=== PATIENT | male | born 1955 | race Caucasian/White ===

== ENCOUNTER 2017-09-29 19:30 | Emergency (ER) | payer MEDICARE, OTHER ==
[~2017-09-29] VITALS: Ht 162.6 cm; Wt 90.7 kg
[~2017-09-29 19:30] MED LIST: ADVAIR 100-501 EACH IH; ADVAIR 250-501 EACH INH; CIPRO500 MG PO; LISINOPRIL-HCT1 EACH PO; OMEPRAZOLE20 MG PO; PREDNISONE20 MG PO; PRILOSEC20 MG PO; RISPERDAL1 MG PO; ROBAFEN-DM SYR118 ML PO; TRAMADOL HCL50 MG PO; VENTOLIN HFA18 GM IH; ZITHROMAX250 MG PO
--- NOTE | 2017-09-30 14:34 | EKG ---
[facility] [address] [facility] [place] [address] Signed Sinus rhythm with premature supraventricular complexes Otherwise normal ECG No previous ECGs available Confirmed by FUAD SELF MD ([id number]) on 09/30/2017 2:33:54 PM Electronically Signed By: FUAD SELF MD 09/30/17 1434 PATIENT NAME: JORGE EPPERSON Electrocardiogram DATE OF : 59 PHYSICIAN: FUAD SELF MD REPORT #: [id number] REPORT IS CONFIDENTIAL AND NOT TO BE RELEASED WITHOUT AUTHORIZATION
== END 2017-09-30 00:21 | disposition home or self-care (01) ==
LOC: ED 19:30
DX: J44.1 Chronic obstructive pulmonary disease with (acute) exacerbation (principal); I10 Essential (primary) hypertension; F17.200 Nicotine dependence, unspecified, uncomplicated; Z88.5 Allergy status to narcotic agent; Z79.899 Other long term (current) drug therapy
CPT/HCPCS: 71045; 76705; 80053; 83735; 83880; 84484; 85025; 93005; 93010; 94640; 94645; 96374; 96375; 99284; J2270; J2405; J2930

== ENCOUNTER 2018-01-18 09:26 | Emergency (ER) | payer MEDICARE, MEDICAID ==
[~2018-01-18] VITALS: Ht 162.6 cm; Wt 90.7 kg
--- OUTSIDE RECORDS SUMMARY | ~2018-01-18 | XMS | Clinical Summary ---
Demographics + + + | Address | [address] | | | [place] [address] | + + + | Home Phone | | + + + | Preferred Language | Unknown | + + + | Marital Status | | + + + | Episcopalian Affiliation | Unknown | + + + | Race | Unknown | + + + | Ethnic Group | Unknown | + + + Author + + + | Author | [facility] | | | and [place] | + + + | Organization | [facility] | | | and [place] | + + + | Address | Unknown | + + + | Phone | Unavailable | + + + Support + + +---------+ + | Name | Relationship | Address | Phone | + + +---------+ + | Nayana Fowler | ECON | Unknown | | + + +---------+ + Care Team Providers + +------+ + | Care Livestock Farmworker Name | Role | Phone | + +------+ + | Glynn Roberts MD | PP | | + +------+ + Allergies + + + + + + | Active Allergy | Reactions | Severity | Noted | Comments | | | | | Date | | + + + + + + | Codeine | Nausea And Vomiting | Medium | 07/06/19 | | | | | | 17 | | + + + + + + Current Medications + + +--------+---------+------+------+-------+ | Prescription | Sig. | Disp. | Refills | Star | End | Statu | | | | | | t | Date | s | | | | | | Date | | | + + +--------+---------+------+------+-------+ | ADVAIR HFA 45-21 | Inhale 2 puffs into | | | 03/0 | | Activ | | MCG/ACT inhaler | the lungs as needed. | | | 7/20 | | e | | | | | | 17 | | | + + +--------+---------+------+------+-------+ | | Take 1 tablet by | | | | | Activ | | lisinopril-hydrochlo | mouth Daily. | | | | | e | | rothiazide | | | | | | | | (PRINZIDE,ZESTORETIC | | | | | | | | ) 20-12.5 MG per | | | | | | | | tablet | | | | | | | + + +--------+---------+------+------+-------+ | sodium | Take 177 mLs by | 2 | 0 | 03/1 | | Activ | | sulfate-potassium | mouth See Admin | Bottle | | 08/12 | | e | | sulfate-magnesium | Instructions. Take | | | 17 | | | | sulfate (SUPREP | one kit, first dose | | | | | | | BOWEL PREP) oral | at 4pm July 12, | | | | | | | solution | second dose at 6AM | | | | | | | | July 13. | | | | | | + + +--------+---------+------+------+-------+ | ondansetron | Take 1 tablet by | 2 | 0 | 03/1 | | Activ | | (ZOFRAN) 4 mg tablet | mouth See Admin | tablet | | 08/12 | | e | | | Instructions. If | | | 17 | | | | | nausea with prep. | | | | | | | | Stop prep, take 1 | | | | | | | | tab by mouth,wait 30 | | | | | | | | min, restart prep | | | | | | | | may repeat | | | | | | + + +--------+---------+------+------+-------+ Active Problems + + + | Problem | Noted Date | + + + | Special screening for malignant neoplasms, colon | 07/09/2016 | + + + | Chronic obstructive pulmonary disease, unspecified COPD type | 07/06/2016 | | (HCC) | | + + + | Hearing voices | 07/06/2016 | + + + | Family history of colon cancer | 07/06/2016 | + + + Family History + + +------+ + | Medical History | Relation | Name | Comments | + + +------+ + | Kidney disease | Daughter | | | + + +------+ + | Colon cancer | Father | | | + + +------+ + | Prostate cancer | Father | | | + + +------+ + | Breast cancer | Mother | | | + + +------+ + | Diabetes | Other | | Aunt | + + +------+ + + +------+--------+ + | Relation | Name | Status | Comments | + +------+--------+ + | Daughter | | | | + +------+--------+ + | Father | | Alive | | + +------+--------+ + | Mother | | Alive | | + +------+--------+ + | Other | | | | + +------+--------+ + Social History + + + +--------+------+ | Tobacco Use | Types | Packs/Day | Years | Date | | | | | Used | | + + + +--------+------+ | Current Some Day | Cigarettes | 0.1 | | | | Smoker | | | | | + + + +--------+------+ + +---+---+---+ | Smokeless Tobacco: | | | | | Never Used | | | | + +---+---+---+ + + | Tobacco Cessation: Ready to Quit: No; Counseling Given: Yes | | Comments: smokes 1 pack per week | + + + + +---------+ + | Alcohol Use | Drinks/We | oz/Week | Comments | | | ek | | | + + +---------+ + | Yes | 0 | 3.0 | | | | Standard | | | | | drinks or | | | | | | | | | | equivalen | | | | | t 5 Cans | | | | | of beer | | | + + +---------+ + + + + | Sex Assigned at | Date Recorded | | | | + + + | Not on file | | + + + Last Filed Vital Signs + + + + | Vital Sign | Reading | Time Taken | + + + + | Blood Pressure | 162/104 | 07/05/20161113 PDT | + + + + | Pulse | 89 | 07/05/20161113 PDT | + + + + | Temperature | 36.8 C (98.3 F) | 07/05/20161113 PDT | + + + + | Respiratory Rate | 16 | 07/05/20161113 PDT | + + + + | Oxygen Saturation | 98% | 07/05/20161113 PDT | + + + + | Inhaled Oxygen | - | - | | Concentration | | | + + + + | Weight | 89.4 kg (197 lb) | 07/05/20161113 PDT | + + + + | Height | 163.8 cm (5' 4.5") | 07/05/20161113 PDT | + + + + | Body Mass Index | 33.29 | 07/05/20161113 PDT | + + + + Plan of Treatment + + + + + | Health Maintenance | Due Date | Last Done | Comments | + + + + + | Hepatitis C | | | | | Screening | 8 | | | + + + + + | Vaccine: | | | | | Pneumococcal 19-64 | 7 | | | | (PPSV23 only) Medium | | | | | Risk (1 of 1 - | | | | | PPSV23) | | | | + + + + + | Colorectal Cancer | | | | | Screening | 8 | | | | (Colonoscopy) | | | | + + + + + | Vaccine: Zoster (1 | | | | | of 2) | 8 | | | + + + + + | Vaccine: | | 05/26/2012 | | | Dtap/Tdap/Td (1 - | 3 | | | | Tdap) | | | | + + + + + | Vaccine: Influenza | | | | | (#1) | 8 | | | + + + + + Results Not on filefrom Last 3 Months Insurance + +--------+ +--------+ +---------+ | Payer | Benefi | Subscriber | Type | Phone | Address | | | t Plan | ID | | | | | | / | | | | | | | Group | | | | | + +--------+ +--------+ +---------+ | MEDICARE | MEDICA | [id number] | Medica | [phone] | | | RE | | re | [phone] | | | | PART A | | | | | | | AND B | | | | | + +--------+ +--------+ +---------+ + +--------+ +--------+ + + | Guarantor Name | Accoun | Relation to | Date | Phone | Billing Address | | | t Type | Patient | of | | | | | | | | | | + +--------+ +--------+ + + | DEMETRIUS BOWMAN | Person | Self [birth year] | Home: | [address] | | | al/Fam | | 1956 | [phone] | [place] [address] | | | candice | | | [phone] | | + +--------+ +--------+ + +
--- OUTSIDE RECORDS SUMMARY | ~2018-01-18 | XMS | Clinical Summary ---
Demographics + + + | Address | [address] | | | [place] [address] | + + + | Home Phone | | + + + | Preferred Language | Unknown | + + + | Marital Status | | + + + | Rastafari Affiliation | Unknown | + + + | Race | Unknown | + + + | Ethnic Group | Unknown | + + + Author + + + | Author | [facility] | | | and [place] | + + + | Organization | [facility] | | | and [place] [...] Team Providers + +------+ + | Care Systems Mgr Name | Role | Phone | + [...] +--------+ +---------+ | MEDICARE | MEDICA | [id number] | Medica | [phone] | | [...] al/Fam | | 1956 | [phone] | [place] [address] | | | candice | | | [phone] | | + +--------+ +--------+ + +
[2018-01-18] MEDS ORDERED: LOSARTAN POTASS50 MG PO (09:42)
[2018-01-18] MEDS ORDERED: METOPROLOL SUCC50 MG PO (09:42)
[2018-01-18] MEDS ORDERED: FAMOTIDINE20 MG PO (09:43)
[2018-01-18] MEDS ORDERED: PREDNISONE20 MG PO (13:45)
[2018-01-18] MEDS ORDERED: OMEPRAZOLE20 MG PO (13:45)
[2018-01-18] MEDS ORDERED: ONDANSETRON ODT8 MG PO (13:45)
== END 2018-01-18 14:10 | disposition home or self-care (01) ==
LOC: ED 09:26
DX: J44.1 Chronic obstructive pulmonary disease with (acute) exacerbation (principal); K29.70 Gastritis, unspecified, without bleeding; K70.10 Alcoholic hepatitis without ascites; K85.90 Acute pancreatitis without necrosis or infection, unspecified; I10 Essential (primary) hypertension; F17.200 Nicotine dependence, unspecified, uncomplicated; Z88.5 Allergy status to narcotic agent; Z79.899 Other long term (current) drug therapy
CPT/HCPCS: 71046; 80053; 83690; 85025; 85610; 85730; 94640; 96361; 96374; 96375; 99283; 99406; J2405; J2930; J7040

== ENCOUNTER 2018-06-12 17:45 | Emergency (ER) | payer MEDICARE, MEDICAID ==
[~2018-06-12] VITALS: Ht 162.6 cm; Wt 90.7 kg
[~2018-06-12 17:45] MED LIST changes: +FAMOTIDINE20 MG PO; +LOSARTAN POTASS50 MG PO; +METOPROLOL SUCC50 MG PO; +ONDANSETRON ODT8 MG PO
[2018-06-12] MEDS ORDERED: PREDNISONE20 MG PO (20:09)
[2018-06-12] MEDS ORDERED: DOXYCYCLINE HY100 MG PO (20:23)
--- NOTE | 2018-06-13 20:16 | EKG ---
[facility] [address] [facility] [place] [address] Signed Normal sinus rhythm Normal ECG When compared with ECG of 29-SEP-2017 19:36, premature supraventricular complexes are no longer present QT has shortened Confirmed by LORRAINE EPSTEIN MD ([id number]) on 06/13/2018 8:15:51 PM Electronically Signed By: LORRAINE EPSTEIN MD 06/13/182015 PATIENT NAME: JORGE EPPERSON Electrocardiogram DATE OF : 59 PHYSICIAN: LORRAINE EPSTEIN MD REPORT #: [id number] REPORT IS CONFIDENTIAL AND NOT TO BE RELEASED WITHOUT AUTHORIZATION
== END 2018-06-12 20:31 | disposition home or self-care (01) ==
LOC: ED 17:45
DX: J44.1 Chronic obstructive pulmonary disease with (acute) exacerbation (principal); I10 Essential (primary) hypertension; F17.200 Nicotine dependence, unspecified, uncomplicated; Z88.5 Allergy status to narcotic agent; Z79.899 Other long term (current) drug therapy; Z79.52 Long term (current) use of systemic steroids
CPT/HCPCS: 71045; 80053; 83735; 83880; 84484; 85025; 93005; 93010; 94640; 94660; 96374; 99285-25; J2930

== ENCOUNTER 2019-08-16 00:40 | Emergency (ER) | payer MEDICARE, MEDICAID ==
[~2019-08-16] VITALS: Ht 162.6 cm; Wt 90.7 kg
--- OUTSIDE RECORDS SUMMARY | ~2019-08-16 | XMS | Encounter Summary ---
Demographics + + + | Address | [address] | | | [place] [address] | + + + | Home Phone | | + + + | Preferred Language | Unknown | + + + | Marital Status | | + + + | Taoist Affiliation | Unknown | + + + | Race | Unknown | + + + | Ethnic Group | Unknown | + + + Author + + + | Author | [facility] | | | and [place] | + + + | Organization | [facility] | | | and [place] | + + + | Address | Unknown | + + + | Phone | Unavailable | + + + Support + + +---------+ + | Name | Relationship | Address | Phone | + + +---------+ + | Nayana Fowler | ECON | Unknown | | + + +---------+ + Care Team Providers + +------+ + | Care Company Doctor Name | Role | Phone | + +------+ + PCP | Unavailable | + +------+ + Encounter Details +--------+ + + + + | Date | Type | Department | Care Team | Description | +--------+ + + + + | 05/12/ | Hospital | [facility] | Gabriele Munoz | | | 2000 - | Encounter | [facility] | MD Naty Yoon | | | | | GENERIC OP CONV DEPT | [address] [place], [place] | | | 05/24/ | | [address] | [address] | | | 2000 | | [place], [place] | | | | | | [address] | | | | | | [phone] | | | +--------+ + + + + Social History + +-------+ +--------+------+ | Tobacco Use | Types | Packs/Day | Years | Date | | | | | Used | | + +-------+ +--------+------+ | Never Assessed | | | | | + +-------+ +--------+------+ + + + | Sex Assigned at | Date Recorded | | | | + + + | Not on file | | + + + + + + + | Job Start Date | Occupation | Industry | + + + + | Not on file | Not on file | Not on file | + + + + + + + + | Travel History | Travel Start | Travel End | + + + + + + | No recent travel history available. | + + documented as of this encounter Plan of Treatment Not on filedocumented as of this encounter Visit Diagnoses Not on filedocumented in this encounter"
--- OUTSIDE RECORDS SUMMARY | ~2019-08-16 | XMS | Encounter Summary ---
Demographics + + + | Address | [address] | | | [place] [address] | + + + | Home Phone | | + + + | Preferred Language | Unknown | + + + | Marital Status | | + + + | Alevism Affiliation | Unknown | + + + | Race | Unknown | + + + | Ethnic Group | Unknown | + + + Author + + + | Author | [facility] | | | and [place] | + + + | Organization | [facility] | | | and [place] | [...] Team Providers + +------+ + | Care Advanced Registered Nurse Name | Role | Phone | + +------+ + | Glnyn Roberts MD | PCP | | + +------+ + Encounter Details +--------+ + + + + | Date | Type | Department | Care Team | Description | +--------+ + + + + | 07/06/ | Episode | [facility] [place] | [address], | | | 2016 | Changes | GASTROENTEROLOGY | RN | | | | | [address] [place] | | | | | | [address] [place] | | | | | | [address] | | | | | | [phone] | | | +--------+ + + + + Social History + +-------+ +--------+------+ | Tobacco Use | Types | Packs/Day | Years | Date | | | | | Used | | + +-------+ +--------+------+ | Light Tobacco Smoker | | | | | + +-------+ +--------+------+ + +---+---+---+ | Smokeless Tobacco: | | | | | Never Used | | | | + +---+---+---+ + + +---------+ + | Alcohol Use | Drinks/Week | oz/Week | Comments | + + +---------+ + | Yes | 0 Standard drinks | 0.0 | | | | or equivalent | | | + + +---------+ + + + + | Sex Assigned at [...]
--- OUTSIDE RECORDS SUMMARY | ~2019-08-16 | XMS | Encounter Summary ---
Demographics + + + | Address | [address] | | | [place] [address] | + + + | Home Phone | | + + + | Preferred Language | Unknown | + + + | Marital Status | | + + + | Church Affiliation | Unknown | + + + | Race | Unknown | + + + | Ethnic Group | Unknown | + + + Author + + + | Author | [facility] | | | and [place] | + + + | Organization | [facility] | | | and [place] [...] Team Providers + +------+ + | Care Biological Technical Officer Name | Role | Phone | + +------+ + | Glynn Roberts MD | PCP | | + +------+ + Encounter Details +--------+ + + + + | Date | Type | Department | Care Team | Description | +--------+ + + + + | 07/13/ | Anesthesia | [facility] | [place], | | | 2017 | Event | [facility] | [address] | | | | | [address] | [place] | | | | | [place] | [address] | | | | | [address] | | | | | | [phone] | | | +--------+ + + + + Anesthesia Record + + + + + | Procedure Name | Responsible | Anesthesia Start | Anesthesia Stop Time | | | Anesthesiologist | Time | | + + + + + | COLONOSCOPY (N/A | | | | | Rectum) | | | | + + + + + + + | No events on file. | + + +------+ | Meds | +------+ + + + No medications | on file. | + + + + + | No agents on file. | + + + + | No blood administrations on file. | + + + + | No LDAs on file. | + + documented in this encounter Social History + + + +--------+------+ | [...] | | + +---+---+---+ + + | Comments: smokes 1 pack per week | + + + + +---------+ + | Alcohol Use | Drinks/Week | oz/Week | Comments | + + +---------+ + | Yes | 0 Standard drinks | 5.0 | | | | or equivalent 5 | | | | | Cans of beer | | | + + [...]
--- OUTSIDE RECORDS SUMMARY | ~2019-08-16 | XMS | Encounter Summary ---
Demographics + + + | Address | [address] | | | [place] [address] | + + + | Home Phone | | + + + | Preferred Language | Unknown | + + + | Marital Status | | + + + | Orthodox Affiliation | Unknown | + + + | Race | Unknown | + + + | Ethnic Group | Unknown | + + + Author + + + | Author | [facility] | | | and [place] | + + + | Organization | [facility] | | | and [place] [...] Team Providers + +------+ + | Care Spare Hand Name | Role | Phone | + [...] [place] | | | | | | [address] | | | | | | [phone] | | | +--------+ + + + [...]
--- OUTSIDE RECORDS SUMMARY | ~2019-08-16 | XMS | Encounter Summary ---
Demographics + + + | Address | [address] | | | [place] [address] | + + + | Home Phone | | + + + | Preferred Language | Unknown | + + + | Marital Status | | + + + | Anabaptist Affiliation | Unknown | + + + | Race | Unknown | + + + | Ethnic Group | Unknown | + + + Author + + + | Author | [facility] | | | and [place] | + + + | Organization | [facility] | | | and [place] [...] Team Providers + +------+ + | Care Wire Saw Operator Name | Role | Phone | + +------+ + PCP | Unavailable | + +------+ + Encounter Details +--------+ + + + + | Date | Type | Department | Care Team | Description | +--------+ + + + + | 06/28/ | Hospital | [facility] | Gabriele Munoz | | | 2000 - | Encounter | [facility] | MD Naty Yoon | | | | | GENERIC OP CONV DEPT | [address] [place], [place] | | | 06/29/ | | [address] | [address] | | | 2000 | | [place], [place] | | | | | | [address] | | | | | | [phone] | | | +--------+ + + + [...]
--- OUTSIDE RECORDS SUMMARY | ~2019-08-16 | XMS | Encounter Summary ---
Demographics + + + | Address | [address] | | | [place] [address] | + + + | Home Phone | | + + + | Preferred Language | Unknown | + + + | Marital Status | | + + + | Episcopal Affiliation | Unknown | + + + | Race | Unknown | + + + | Ethnic Group | Unknown | + + + Author + + + | Author | [facility] | | | and [place] | + + + | Organization | [facility] | | | and [place] | [...] Team Providers + +------+ + | Care Head Housekeeper Name | Role | Phone | + +------+ + | Glynn Roberts MD | PCP | | + +------+ + Encounter Details +--------+ + + + + | Date | Type | Department | Care Team | Description | +--------+ + + + + | 07/05/ | Documentati | [facility] [place] | [facility], | | | 2017 | on | GASTROENTEROLOGY | [address] | | | | | [address] [place] | [place], [place] [address] | | | | | [address] [place] | [place] | | | | | [address] | [address] | | | | | [phone] | | | +--------+ + + + [...]
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
--- OUTSIDE RECORDS SUMMARY | ~2019-08-16 | XMS | Encounter Summary ---
Demographics + + + | Address | [address] | | | [place] [address] | + + + | Home Phone | | + + + | Preferred Language | Unknown | + + + | Marital Status | | + + + | Hinduism Affiliation | Unknown | + + + | Race | Unknown | + + + | Ethnic Group | Unknown | + + + Author + + + | Author | [facility] | | | and [place] | + + + | Organization | [facility] | | | and [place] [...] Team Providers + +------+ + | Care Coater Operator Insulation Board Name | Role | Phone | + +------+ + | Glynn Roberts MD | PCP | | + +------+ + Reason for Visit + + + | Reason | Comments | + + + | Pre-Procedure | questions | + + + Encounter Details +--------+ + + + + | Date | Type | Department | Care Team | Description | +--------+ + + + + | 07/12/ | Telephone | [facility] [place] | [facility], | Pre-Procedure | | 2017 | | GASTROENTEROLOGY | Karyn[address]WAIN [address] | (questions) | | | | [address] [place] | [place], [place] [address] | | | | | [address] [place], [place] | [place], [place] | | | | | [address] | [address] | | | | | [phone] | | | +--------+ + + + + Social History + + + +--------+------+ [...]
--- OUTSIDE RECORDS SUMMARY | ~2019-08-16 | XMS | Encounter Summary ---
Demographics + + + | Address | [address] | | | [place] [address] | + + + | Home Phone | | + + + | Preferred Language | Unknown | + + + | Marital Status | | + + + | Scientologist Affiliation | Unknown | + + + | Race | Unknown | + + + | Ethnic Group | Unknown | + + + Author + + + | Author | [facility] | | | and [place] | + + + | Organization | [facility] | | | and [...] Team Providers + +------+ + | Care All Around Patternmaker Name | Role | Phone | + [...] | Telephone | [facility] [place] | [facility], | Pre-Procedure | | 2017 | | GASTROENTEROLOGY | [address]IN [address] | (questions) | | | | [address] [place] | [place], [place] [address] | | | | | [address] [place], [place] | [place], [place] | | | | | [address] | [address] | | | | | [phone] | | | +--------+ + + + [...]
--- OUTSIDE RECORDS SUMMARY | ~2019-08-16 | XMS | Encounter Summary ---
Demographics + + + | Address | [address] | | | [place] [address] | + + + | Home Phone | | + + + | Preferred Language | Unknown | + + + | Marital Status | | + + + | Uatsdin Affiliation | Unknown | + + + | Race | Unknown | + + + | Ethnic Group | Unknown | + + + Author + + + | Author | [facility] | | | and [place] | + + + | Organization | [facility] | | | and [...] Team Providers + +------+ + | Care Job Analysis Manager Name | Role | Phone | + +------+ + | Glynn Roberts MD | PCP | | + +------+ + Reason for Visit + + + | Reason | Comments | + + + | Procedure | | + + + Encounter Details +--------+ + + + + | Date | Type | Department | Care Team | Description | +--------+ + + + + | 07/13/ | Telephone | [facility] [place] | [facility], | Procedure | | 2017 | | GASTROENTEROLOGY | [address] | | | | | [address] [place] | [place], [place] [address] | | | | | [address] [place], [place] | [place], [place] | | | | | [address] | [address] | | | | | [phone] | | | +--------+ + + + [...]
--- OUTSIDE RECORDS SUMMARY | ~2019-08-16 | XMS | Encounter Summary ---
Demographics + + + | Address | [address] | | | [place] [address] | + + + | Home Phone | | + + + | Preferred Language | Unknown | + + + | Marital Status | | + + + | Jain Affiliation | Unknown | + + + | Race | Unknown | + + + | Ethnic Group | Unknown | + + + Author + + + | Author | [facility] | | | and [place] | + + + | Organization | [facility] | | | and [place] | [...] Team Providers + +------+ + | Care Accredited Pharmacy Technician Name | Role | Phone | + +------+ + | Glynn Roberts MD | PCP | | + +------+ + Encounter Details +--------+ + + + + | Date | Type | Department | Care Team | Description | +--------+ + + + + | 07/05/ | Abstract | [facility] | [place], | | | 2017 | | GASTROENTEROLOGY | [address] | | | | | [address] [place] | [place], [place] [address] | | | | | [address] | [place] | | | | | [address] | [address] | | | | | [phone] | | | +--------+ + + + [...] | + +--------+ + + + | EXTERNAL LAB: BUN | Routin | 08/18/2015 | | Results for this | | | e | | | procedure are in the | | | | | | results section. | + +--------+ + + + | EXTERNAL LAB: | Routin | 08/18/2015 | | Results for this | | GLUCOSE | e | | | procedure are in the | | | | | | results section. | + +--------+ + + + | EXTERNAL LAB: ALT | Routin | 08/18/2015 | | Results for this | | | e | | | procedure are in the | | | | | | results section. | + +--------+ + + + | EXTERNAL LAB: AST | Routin | 08/18/2015 | | Results for this | | | e | | | procedure are in the | | | | | | results section. | + +--------+ + + + | EXTERNAL LAB: | Routin | 08/18/2015 | | Results for this | | BILIRUBIN, TOTAL | e | | | procedure are in the | | | | | | results section. | + +--------+ + + + | EXTERNAL LAB: | Routin | 08/18/2015 | | Results for this | | ALBUMIN | e | | | procedure are in the | | | | | | results section. | + +--------+ + + + | EXTERNAL LAB: | Routin | 08/18/2015 | | Results for this | | PROTEIN, TOTAL | e | | | procedure are in the | | | | | | results section. | + +--------+ + + + | EXTERNAL LAB: | Routin | 08/18/2015 | | Results for this | | MAGNESIUM | e | | | procedure are in the | | | | | | results section. | + +--------+ + + + | EXTERNAL LAB: | Routin | 08/18/2015 | | Results for this | | CALCIUM | e | | | procedure are in the | | | | | | results section. | + +--------+ + + + | EXTERNAL LAB: CARBON | Routin | 08/18/2015 | | Results for this | | DIOXIDE | e | | | procedure are in the | | | | | | results section. | + +--------+ + + + | EXTERNAL LAB: | Routin | 08/18/2015 | | Results for this | | CHLORIDE | e | | | procedure are in the | | | | | | results section. | + +--------+ + + + | EXTERNAL LAB: | Routin | 08/18/2015 | | Results for this | | POTASSIUM | e | | | procedure are in the | | | | | | results section. | + +--------+ + + + | EXTERNAL LAB: SODIUM | Routin | 08/18/2015 | | Results for this | | | e | | | procedure are in the | | | | | | results section. | + +--------+ + + + | EXTERNAL LAB: CBC | Routin | 08/18/2015 | | Results for this | | | e | | | procedure are in the | | | | | | results section. | + +--------+ + + + | EXTERNAL LAB: EGFR | Routin | 08/18/2015 | | Results for this | | | e | | | procedure are in the | | | | | | results section. | + +--------+ + + + | EXTERNAL LAB: | Routin | 08/18/2015 | | Results for this | | CREATININE | e | | | procedure are in the | | | | | | results section. | + +--------+ + + + | COMPREHENSIVE | Routin | 08/18/2015 | | Results for this | | METABOLIC PANEL | e | | | procedure are in the | | | | | | results section. | + +--------+ + + + | EXTERNAL LAB: BUN | Routin | 08/17/2015 | | Results for this | | | e | | | procedure are in the | | | | | | results section. | + +--------+ + + + | EXTERNAL LAB: | Routin | 08/17/2015 | | Results for this | | GLUCOSE | e | | | procedure are in the | | | | | | results section. | + +--------+ + + + | EXTERNAL LAB: | Routin | 08/17/2015 | | Results for this | | TROPONIN T | e | | | procedure are in the | | | | | | results section. | + +--------+ + + + | EXTERNAL LAB: | Routin | 08/17/2015 | | Results for this | | CALCIUM | e | | | procedure are in the | | | | | | results section. | + +--------+ + + + | EXTERNAL LAB: CARBON | Routin | 08/17/2015 | | Results for this | | DIOXIDE | e | | | procedure are in the | | | | | | results section. | + +--------+ + + + | EXTERNAL LAB: | Routin | 08/17/2015 | | Results for this | | CHLORIDE | e | | | procedure are in the | | | | | | results section. | + +--------+ + + + | EXTERNAL LAB: | Routin | 08/17/2015 | | Results for this | | POTASSIUM | e | | | procedure are in the | | | | | | results section. | + +--------+ + + + | EXTERNAL LAB: SODIUM | Routin | 08/17/2015 | | Results for this | | | e | | | procedure are in the | | | | | | results section. | + +--------+ + + + | EXTERNAL LAB: CBC | Routin | 08/17/2015 | | Results for this | | | e | | | procedure are in the | | | | | | results section. | + +--------+ + + + | EXTERNAL LAB: EGFR | Routin | 08/17/2015 | | Results for this | | | e | | | procedure are in the | | | | | | results section. | + +--------+ + + + | EXTERNAL LAB: | Routin | 08/17/2015 | | Results for this | | CREATININE | e | | | procedure are in the | | | | | | results section. | + +--------+ + + + | B TYPE NATRIURETIC | Routin | 08/17/2015 | | Results for this | | PEPTIDE | e | | | procedure are in the | | | | | | results section. | + +--------+ + + + | BASIC METABOLIC | Routin | 08/17/2015 | | Results for this | | PANEL | e | | | procedure are in the | | | | | | results section. | + +--------+ + + + documented in this encounter Results Comprehensive Metabolic Panel (08/18/2015) + +-------+ + + + | Component | Value | Ref Range | Performed | Pathologist | | | | | At | Signature | + +-------+ + + + | Anion Gap | 13 | 7 - 21 mmol/L | | | + +-------+ + + + | Bun/Creatin | 15.6 | 6.0 - 28.6 | | | | ine | | | | | + +-------+ + + + + + | Specimen | + + | Blood specimen | | (specimen) | + + External Lab: BUN (08/18/2015) + +-------+ + + + | Component | Value | Ref Range | Performed | Pathologist | | | | | At | Signature | + +-------+ + + + | BUN, | 14 | 6 - 23 | EXTERNAL | | | External | | | LAB | | + +-------+ + + + + +---------+ + + | Performing | Address | City/State/Zipcode | Phone Number | | Organization | | | | + +---------+ + + | EXTERNAL LAB | | | | + +---------+ + + External Lab: Glucose (08/18/2015) + +---------+ + + + | Component | Value | Ref Range | Performed | Pathologist | | | | | At | Signature | + +---------+ + + + | Glucose, | 151 (A) | 70 - 100 | EXTERNAL | | | External | | | LAB | | + +---------+ + + + + +---------+ + + | Performing | Address | City/State/Zipcode | Phone Number | | Organization | | | | + +---------+ + + | EXTERNAL LAB | | | | + +---------+ + + External Lab: ALT (08/18/2015) + +-------+ + + + | Component | Value | Ref Range | Performed | Pathologist | | | | | At | Signature | + +-------+ + + + | ALT, | 43 | 7 - 52 | EXTERNAL | | | External | | | LAB | | + +-------+ + + + + +---------+ + + | Performing | Address | City/State/Zipcode | Phone Number | | Organization | | | | + +---------+ + + | EXTERNAL LAB | | | | + +---------+ + + External Lab: YESENIA (08/18/2015) + +--------+ + + + | Component | Value | Ref Range | Performed | Pathologist | | | | | At | Signature | + +--------+ + + + | AST, | 45 (A) | 13 - 39 | EXTERNAL | | | External | | | LAB | | + +--------+ + + + + +---------+ + + | Performing | Address | City/State/Zipcode | Phone Number | | Organization | | | | + +---------+ + + | EXTERNAL LAB | | | | + +---------+ + + External Lab: Bilirubin, Total (08/18/2015) + +-------+ + + + | Component | Value | Ref Range | Performed | Pathologist | | | | | At | Signature | + +-------+ + + + | Bilirubin, | 0.5 | 0 - 1.2 | EXTERNAL | | | Total, | | | LAB | | | External | | | | | + +-------+ + + + + +---------+ + + | Performing | Address | City/State/Zipcode | Phone Number | | Organization | | | | + +---------+ + + | EXTERNAL LAB | | | | + +---------+ + + External Lab: Albumin (08/18/2015) + +-------+ + + + | Component | Value | Ref Range | Performed | Pathologist | | | | | At | Signature | + +-------+ + + + | Albumin, | 3.7 | 3.5 - 5 | EXTERNAL | | | External | | | LAB | | + +-------+ + + + + +---------+ + + | Performing | Address | City/State/Zipcode | Phone Number | | Organization | | | | + +---------+ + + | EXTERNAL LAB | | | | + +---------+ + + External Lab: Protein, Total (08/18/2015) + +-------+ + + + | Component | Value | Ref Range | Performed | Pathologist | | | | | At | Signature | + +-------+ + + + | Protein, | 6.5 | 6 - 8 | EXTERNAL | | | Total, | | | LAB | | | External | | | | | + +-------+ + + + + +---------+ + + | Performing | Address | City/State/Zipcode | Phone Number | | Organization | | | | + +---------+ + + | EXTERNAL LAB | | | | + +---------+ + + External Lab: Magnesium (08/18/2015) + +-------+ + + + | Component | Value | Ref Range | Performed | Pathologist | | | | | At | Signature | + +-------+ + + + | Magnesium, | 2.3 | 1.7 - 2.5 | EXTERNAL | | | External | | | LAB | | + +-------+ + + + + +---------+ + + | Performing | Address | City/State/Zipcode | Phone Number | | Organization | | | | + +---------+ + + | EXTERNAL LAB | | | | + +---------+ + + External Lab: Calcium (08/18/2015) + +-------+ + + + | Component | Value | Ref Range | Performed | Pathologist | | | | | At | Signature | + +-------+ + + + | Calcium, | 8.7 | 8.4 - 10.2 | EXTERNAL | | | External | | | LAB | | + +-------+ + + + + +---------+ + + | Performing | Address | City/State/Zipcode | Phone Number | | Organization | | | | + +---------+ + + | EXTERNAL LAB | | | | + +---------+ + + External Lab: Carbon Dioxide (08/18/2015) + +-------+ + + + | Component | Value | Ref Range | Performed | Pathologist | | | | | At | Signature | + +-------+ + + + | Carbon | 24 | 19 - 31 | EXTERNAL | | | Dioxide, | | | LAB | | | External | | | | | + +-------+ + + + + +---------+ + + | Performing | Address | City/State/Zipcode | Phone Number | | Organization | | | | + +---------+ + + | EXTERNAL LAB | | | | + +---------+ + + External Lab: Chloride (08/18/2015) + +-------+ + + + | Component | Value | Ref Range | Performed | Pathologist | | | | | At | Signature | + +-------+ + + + | Chloride, | 104 | 95 - 112 | EXTERNAL | | | External | | | LAB | | + +-------+ + + + + +---------+ + + | Performing | Address | City/State/Zipcode | Phone Number | | Organization | | | | + +---------+ + + | EXTERNAL LAB | | | | + +---------+ + + External Lab: Potassium (08/18/2015) + +-------+ + + + | Component | Value | Ref Range | Performed | Pathologist | | | | | At | Signature | + +-------+ + + + | Potassium, | 4.8 | 3.6 - 5.1 | EXTERNAL | | | External | | | LAB | | + +-------+ + + + + +---------+ + + | Performing | Address | City/State/Zipcode | Phone Number | | Organization | | | | + +---------+ + + | EXTERNAL LAB | | | | + +---------+ + + External Lab: Sodium (08/18/2015) + +-------+ + + + | Component | Value | Ref Range | Performed | Pathologist | | | | | At | Signature | + +-------+ + + + | Sodium, | 136 | 132 - 143 | EXTERNAL | | | External | | | LAB | | + +-------+ + + + + +---------+ + + | Performing | Address | City/State/Zipcode | Phone Number | | Organization | | | | + +---------+ + + | EXTERNAL LAB | | | | + +---------+ + + External Lab: CBC (08/18/2015) + + + + + + | Component | Value | Ref Range | Performed | Pathologist | | | | | At | Signature | + + + + + + | WBC, | 14.6 (A) | 4.5 - 11 | EXTERNAL | | | External | | | LAB | | + + + + + + | HGB, | 16.9 | 13.5 - 18 | EXTERNAL | | | External | | | LAB | | + + + + + + | HCT, | 51.8 | 41 - 60 | EXTERNAL | | | External | | | LAB | | + + + + + + | PLT, | 202 | 140 - 440 | EXTERNAL | | | External | | | LAB | | + + + + + + | Neutrophils | 89.0 (A) | 39 - 80 | EXTERNAL | | | %, | | | LAB | | | External | | | | | + + + + + + | Lymphocytes | 6.3 (A) | 24 - 44 | EXTERNAL | | | %, | | | LAB | | | External | | | | | + + + + + + | Monocytes | 5.1 | 0 - 12 | EXTERNAL | | | %, External | | | LAB | | + + + + + + | Eosinophils | 0.0 | 0 - 6 | EXTERNAL | | | %, | | | LAB | | | External | | | | | + + + + + + | RBC, | 6.35 (A) | 4.3 - 5.7 | EXTERNAL | | | External | | | LAB | | + + + + + + | MCV, | 97 | 81 - 99 | EXTERNAL | | | External | | | LAB | | + + + + + + | RDW, | 13 | 10.5 - 15 | EXTERNAL | | | External | | | LAB | | + + + + + + + +---------+ + + | Performing | Address | City/State/Zipcode | Phone Number | | Organization | | | | + +---------+ + + | EXTERNAL LAB | | | | + +---------+ + + External Lab: eGFR (08/18/2015) + +-------+ + + + | Component | Value | Ref Range | Performed | Pathologist | | | | | At | Signature | + +-------+ + + + | eGFR, | 87 | 60 - 99,999 | EXTERNAL | | | External | | | LAB | | + +-------+ + + + + + | Specimen | + + | Blood specimen | | (specimen) | + + + +---------+ + + | Performing | Address | City/State/Zipcode | Phone Number | | Organization | | | | + +---------+ + + | EXTERNAL LAB | | | | + +---------+ + + External Lab: Creatinine (08/18/2015) + +-------+ + + + | Component | Value | Ref Range | Performed | Pathologist | | | | | At | Signature | + +-------+ + + + | Creatinine, | 0.90 | 0.7 - 1.33 | EXTERNAL | | | External | | | LAB | | + +-------+ + + + + + | Specimen | + + | Blood specimen | | (specimen) | + + + +---------+ + + | Performing | Address | City/State/Zipcode | Phone Number | | Organization | | | | + +---------+ + + | EXTERNAL LAB | | | | + +---------+ + + B Type Natriuretic Peptide (08/17/2015) + +-------+ + + + | Component | Value | Ref Range | Performed | Pathologist | | | | | At | Signature | + +-------+ + + + | BNP | 10 | 0 - 100 pg/mL | | | + +-------+ + + + + + | Specimen | + + | Blood specimen | | (specimen) | + + Basic Metabolic Panel (08/17/2015) + +-------+ + + + | Component | Value | Ref Range | Performed | Pathologist | | | | | At | Signature | + +-------+ + + + | Anion Gap | 11 | 7 - 21 mmol/L | | | + +-------+ + + + | Bun/Creatin | 14.3 | 6.0 - 28.6 | | | | ine | | | | | + +-------+ + + + + + | Specimen | + + | Blood specimen | | (specimen) | + + External Lab: BUN (08/17/2015) + +-------+ + + + | Component | Value | Ref Range | Performed | Pathologist | | | | | At | Signature | + +-------+ + + + | BUN, | 13 | 6 - 23 | EXTERNAL | | | External | | | LAB | | + +-------+ + + + + +---------+ + + | Performing | Address | City/State/Zipcode | Phone Number | | Organization | | | | + +---------+ + + | EXTERNAL LAB | | | | + +---------+ + + External Lab: Glucose (08/17/2015) + +-------+ + + + | Component | Value | Ref Range | Performed | Pathologist | | | | | At | Signature | + +-------+ + + + | Glucose, | 87 | 70 - 100 | EXTERNAL | | | External | | | LAB | | + +-------+ + + + + +---------+ + + | Performing | Address | City/State/Zipcode | Phone Number | | Organization | | | | + +---------+ + + | EXTERNAL LAB | | | | + +---------+ + + External Lab: Troponin T (08/17/2015) + +--------+ + + + | Component | Value | Ref Range | Performed | Pathologist | | | | | At | Signature | + +--------+ + + + | Troponin T, | <0.010 | | EXTERNAL | | | External | | | LAB | | + +--------+ + + + + +---------+ + + | Performing | Address | City/State/Zipcode | Phone Number | | Organization | | | | + +---------+ + + | EXTERNAL LAB | | | | + +---------+ + + External Lab: Calcium (08/17/2015) + +-------+ + + + | Component | Value | Ref Range | Performed | Pathologist | | | | | At | Signature | + +-------+ + + + | Calcium, | 9.1 | 8.4 - 10.2 | EXTERNAL | | | External | | | LAB | | + +-------+ + + + + +---------+ + + | Performing | Address | City/State/Zipcode | Phone Number | | Organization | | | | + +---------+ + + | EXTERNAL LAB | | | | + +---------+ + + External Lab: Carbon Dioxide (08/17/2015) + +-------+ + + + | Component | Value | Ref Range | Performed | Pathologist | | | | | At | Signature | + +-------+ + + + | Carbon | 29 | 19 - 31 | EXTERNAL | | | Dioxide, | | | LAB | | | External | | | | | + +-------+ + + + + +---------+ + + | Performing | Address | City/State/Zipcode | Phone Number | | Organization | | | | + +---------+ + + | EXTERNAL LAB | | | | + +---------+ + + External Lab: Chloride (08/17/2015) + +-------+ + + + | Component | Value | Ref Range | Performed | Pathologist | | | | | At | Signature | + +-------+ + + + | Chloride, | 98 | 95 - 112 | EXTERNAL | | | External | | | LAB | | + +-------+ + + + + +---------+ + + | Performing | Address | City/State/Zipcode | Phone Number | | Organization | | | | + +---------+ + + | EXTERNAL LAB | | | | + +---------+ + + External Lab: Potassium (08/17/2015) + +-------+ + + + | Component | Value | Ref Range | Performed | Pathologist | | | | | At | Signature | + +-------+ + + + | Potassium, | 4.1 | 3.6 - 5.1 | EXTERNAL | | | External | | | LAB | | + +-------+ + + + + +---------+ + + | Performing | Address | City/State/Zipcode | Phone Number | | Organization | | | | + +---------+ + + | EXTERNAL LAB | | | | + +---------+ + + External Lab: Sodium (08/17/2015) + +-------+ + + + | Component | Value | Ref Range | Performed | Pathologist | | | | | At | Signature | + +-------+ + + + | Sodium, | 134 | 132 - 143 | EXTERNAL | | | External | | | LAB | | + +-------+ + + + + +---------+ + + | Performing | Address | City/State/Zipcode | Phone Number | | Organization | | | | + +---------+ + + | EXTERNAL LAB | | | | + +---------+ + + External Lab: CBC (08/17/2015) + +-------+ + + + | Component | Value | Ref Range | Performed | Pathologist | | | | | At | Signature | + +-------+ + + + | WBC, | 5.2 | 4.5 - 11 | EXTERNAL | | | External | | | LAB | | + +-------+ + + + | RBC, | 5.41 | 4.3 - 5.7 | EXTERNAL | | | External | | | LAB | | + +-------+ + + + | MCV, | 96 | 81 - 99 | EXTERNAL | | | External | | | LAB | | + +-------+ + + + | RDW, | 13.1 | 10.5 - 15 | EXTERNAL | | | External | | | LAB | | + +-------+ + + + + +---------+ + + | Performing | Address | City/State/Zipcode | Phone Number | | Organization | | | | + +---------+ + + | EXTERNAL LAB | | | | + +---------+ + + External Lab: eGFR (08/17/2015) + +-------+ + + + | Component | Value | Ref Range | Performed | Pathologist | | | | | At | Signature | + +-------+ + + + | eGFR, | 86 | 60 - 99,999 | EXTERNAL | | | External | | | LAB | | + +-------+ + + + + + | Specimen | + + | Blood specimen | | (specimen) | + + + +---------+ + + | Performing | Address | City/State/Zipcode | Phone Number | | Organization | | | | + +---------+ + + | EXTERNAL LAB | | | | + +---------+ + + External Lab: Creatinine (08/17/2015) + +-------+ + + + | Component | Value | Ref Range | Performed | Pathologist | | | | | At | Signature | + +-------+ + + + | Creatinine, | 0.91 | 0.7 - 1.33 | EXTERNAL | | | External | | | LAB | | + +-------+ + + + + + | Specimen | + + | Blood specimen | | (specimen) | + + + +---------+ + + | Performing | Address | City/State/Zipcode | Phone Number | | Organization | | | | + +---------+ + + | EXTERNAL LAB | | | | + +---------+ + + documented in this encounter Visit Diagnoses Not on filedocumented in this encounter"
--- OUTSIDE RECORDS SUMMARY | ~2019-08-16 | XMS | Encounter Summary ---
Demographics + + + | Address | [address] | | | [place] [address] | + + + | Home Phone | | + + + | Preferred Language | Unknown | + + + | Marital Status | | + + + | Pentecostalism Affiliation | Unknown | + + + | Race | Unknown | + + + | Ethnic Group | Unknown | + + + Author + + + | Author | [facility] | | | and [place] | + + + | Organization | [facility] | | | and [place] | [...] Team Providers + +------+ + | Care Building Code Inspector Name | Role | Phone | + +------+ + | Glynn Roberts MD | PCP | | + +------+ + Encounter Details +--------+ + + + + | Date | Type | Department | Care Team | Description | +--------+ + + + + | 07/05/ | Orders Only | [facility] [place] | [facility], | Special screening | | 2017 | | GASTROENTEROLOGY | [address] | for malignant | | | | [address] [place] | [place], [address] | neoplasms, colon | | | | [address] [place], [place] | [place], [place] | (Primary Dx); Family | | | | [address] | [id number] | history of colon | | | | [phone] | | cancer; Hearing | | | | | | voices; Chronic | | | | | | obstructive | | | | | | pulmonary disease, | | | | | | unspecified COPD | | | | | | type (HCC) | +--------+ + + + + Social [...] + + documented as of this encounter Progress Notes Soledad Lane RN - 07/05/2016 12:10 PM PDTScheduled for colon with prop on 07/[address] Samuel; Kimber advises using propElectronically signed by Soledad Lane RN at 2016 11:53 AM PDTdocumented in this encounter Plan of Treatment Not on filedocumented as of this encounter Visit Diagnoses + + | Diagnosis | + + | Special screening for malignant neoplasms, colon - Primary | + + | Family history of colon cancer Family history of malignant neoplasm of | | gastrointestinal tract | + + | Hearing voices Hallucinations | + + | Chronic obstructive pulmonary disease, unspecified COPD type (HCC) | + + documented in this encounter"
--- OUTSIDE RECORDS SUMMARY | ~2019-08-16 | XMS | Encounter Summary ---
Demographics + + + | Address | [address] | | | [place] [address] | + + + | Home Phone | | + + + | Preferred Language | Unknown | + + + | Marital Status | | + + + | Hoahaoism Affiliation | Unknown | + + + | Race | Unknown | + + + | Ethnic Group | Unknown | + + + Author + + + | Author | [facility] | | | and [place] | + + + | Organization | [facility] | | | and [place] | [...] Team Providers + +------+ + | Care Director Of Construction Name | Role | Phone | + [...] | [address] [place] | [place], [address] | | | | | [address] | [place] | | | | | [address] | [address] | | | | | [phone] | | | +--------+ + + + [...]
--- OUTSIDE RECORDS SUMMARY | ~2019-08-16 | XMS | Encounter Summary ---
Demographics + + + | Address | [address] | | | [place] [address] | + + + | Home Phone | | + + + | Preferred Language | Unknown | + + + | Marital Status | | + + + | Mormon Affiliation | Unknown | + + + | Race | Unknown | + + + | Ethnic Group | Unknown | + + + Author + + + | Author | [facility] | | | and [place] | + + + | Organization | [facility] | | | and [...] Team Providers + +------+ + | Care Port Purser Name | Role | Phone | + +------+ + PCP | Unavailable | + +------+ + Encounter Details +--------+ + + + + | Date | Type | Department | Care Team | Description | +--------+ + + + + | 06/28/ | Hospital | [facility] | Gabriele Munoz | | | 2000 - | Encounter | [facility] | MD Naty Yoon | | | | | GENERIC OP CONV DEPT | [address], [place] | | | 06/29/ | | [address] | [address] | | | 2000 | | [place], [place] | | | | | | [address] | | | | | | [phone] | | | +--------+ + + + [...]
--- OUTSIDE RECORDS SUMMARY | ~2019-08-16 | XMS | Encounter Summary ---
Demographics + + + | Address | [address] | | | [place] [address] | + + + | Home Phone | | + + + | Preferred Language | Unknown | + + + | Marital Status | | + + + | Rastafarian Affiliation | Unknown | + + + | Race | Unknown | + + + | Ethnic Group | Unknown | + + + Author + + + | Author | [facility] | | | and [place] | + + + | Organization | [facility] | | | and [place] [...] Providers + +------+ + | Care Accredited Farm Manager Name | Role | Phone | [...] | [address] [place] | [place], [place] [address] | | | | | [address] | [place] | | | | | [address] | [address] | | | | | [phone] | | | +--------+ + + + [...]
--- OUTSIDE RECORDS SUMMARY | ~2019-08-16 | XMS | Encounter Summary ---
Demographics + + + | Address | [address] | | | [place] [address] | + + + | Home Phone | | + + + | Preferred Language | Unknown | + + + | Marital Status | | + + + | Restorationist Affiliation | Unknown | + + + | Race | Unknown | + + + | Ethnic Group | Unknown | + + + Author + + + | Author | [facility] | | | and [place] | + + + | Organization | [facility] | | | and [...] Team Providers + +------+ + | Care Rawhide Bone Roller Name | Role | Phone | + +------+ + PCP | Unavailable | + +------+ + Encounter Details +--------+ + + + + | Date | Type | Department | Care Team | Description | +--------+ + + + + | 05/24/ | Hospital | [facility] | Gabriele Munoz | | | 2000 - | Encounter | [facility] | MD Naty Yoon | | | | | GENERIC OP CONV DEPT | [address] [place], [place] | | | 06/14/ | | [address] | [address] | | | 2000 | | [place], [place] | | | | | | [address] | | | | | | [phone] | | | +--------+ + + + [...]
--- OUTSIDE RECORDS SUMMARY | ~2019-08-16 | XMS | Encounter Summary ---
Demographics + + + | Address | [address] | | | [place] [address] | + + + | Home Phone | | + + + | Preferred Language | Unknown | + + + | Marital Status | | + + + | Jewish Affiliation | Unknown | + + + | Race | Unknown | + + + | Ethnic Group | Unknown | + + + Author + + + | Author | [facility] | | | and [place] | + + + | Organization | [facility] | | | and [place] [...] Team Providers + +------+ + | Care Signalling And Communications Engineer Name | Role | Phone | + +------+ + PCP | Unavailable | + +------+ + Encounter Details +--------+ + + + + | Date | Type | Department | Care Team | Description | +--------+ + + + + | 05/24/ | Hospital | [facility] | Gabriele Munoz | | | 2000 - | Encounter | [facility] | MD Naty Yoon | | | | | GENERIC OP CONV DEPT | [address] [place], [place] | | | 06/14/ | | [address] | [address] | | | 2000 | | [place], [place] | | | | | | [address] | | | | | | [phone] | | | +--------+ + + + [...]
--- OUTSIDE RECORDS SUMMARY | ~2019-08-16 | XMS | Encounter Summary ---
Demographics + + + | Address | [address] | | | [place] [address] | + + + | Home Phone | | + + + | Preferred Language | Unknown | + + + | Marital Status | | + + + | Orthodox Affiliation | Unknown | + + + | Race | Unknown | + + + | Ethnic Group | Unknown | + + + Author + + + | Author | [facility] | | | and [place] | + + + | Organization | [facility] | | | and [...] Team Providers + +------+ + | Care Cager Operator Name | Role | Phone | + +------+ + PCP | Unavailable | + +------+ + Encounter Details +--------+ + + + + | Date | Type | Department | Care Team | Description | +--------+ + + + + | 05/12/ | Hospital | [facility] | Gabriele Munoz | | | 2000 - | Encounter | [facility] | MD Naty Yoon | | | | | GENERIC OP CONV DEPT | [address] [place], [place] | | | 05/24/ | | [address] | [address] | | | 2000 | | [place], [place] | | | | | | [address] | | | | | | [phone] | | | +--------+ + + + [...]
--- OUTSIDE RECORDS SUMMARY | ~2019-08-16 | XMS | Encounter Summary ---
Demographics + + + | Address | [address] | | | [place] [address] | + + + | Home Phone | | + + + | Preferred Language | Unknown | + + + | Marital Status | | + + + | Anabaptist Affiliation | Unknown | + + + | Race | Unknown | + + + | Ethnic Group | Unknown | + + + Author + + + | Author | [facility] | | | and [place] | + + + | Organization | [facility] | | | and [place] | [...] Team Providers + +------+ + | Care Superintendent Circus Name | Role | Phone | + [...] [place] | | | | | | [address] | | | | | | [phone] | | | +--------+ + + + [...]
--- OUTSIDE RECORDS SUMMARY | ~2019-08-16 | XMS | Clinical Summary ---
Demographics + + + | Address | [address] | | | [place] [address] | + + + | Home Phone | | + + + | Preferred Language | Unknown | + + + | Marital Status | | + + + | Hoahaoism Affiliation | Unknown | + + + | Race | Unknown | + + + | Ethnic Group | Unknown | + + + Author + + + | Author | [facility] | | | and [place] | + + + | Organization | [facility] | | | and [...] Team Providers + +------+ + | Care Magazine Keeper Name | Role | Phone | + +------+ + | Glynn Roberts MD | PCP | | + +------+ + Allergies + + + + + + | Active Allergy | Reactions | Severity | Noted | Comments | | | | | Date | | + + + + + + | Codeine | Nausea And Vomiting | Medium | 07/06/19 | | | | | | 17 | | + + + + + + Medications + + + +---------+------+------+-------+ | Medication | Sig | Dispensed | Refills | Star | End | Statu | | | | | | t | Date | s | | | | | | Date | | | + + + +---------+------+------+-------+ | ADVAIR HFA 45-21 | Inhale 2 puffs into | | 0 | 03/0 | | Activ | | MCG/ACT inhaler | the lungs as needed. | | | 7/20 | | e | | | | | | 17 | | | + + + +---------+------+------+-------+ | | Take 1 tablet by | | 0 | | | Activ | | lisinopril-hydrochlo | mouth Daily. | | | | | e | | rothiazide | | | | | | | | (PRINZIDE,ZESTORETIC | | | | | | | | ) 20-12.5 MG per | | | | | | | | tablet | | | | | | | + + + +---------+------+------+-------+ | sodium | Take 177 mLs by [...] | | | | + + + +---------+------+------+-------+ | ondansetron | Take 1 tablet by [...] | | | | + + + +---------+------+------+-------+ Active Problems + + + | Problem | Noted Date | + + + | Special screening for malignant neoplasms, colon | 07/09/2016 | + + + | Chronic obstructive pulmonary disease, unspecified COPD type | 07/06/2016 | + + + | Hearing voices [...] recent travel history available. | + + Last Filed Vital Signs + [...] | | + + + + + Plan of Treatment + + + + + | Health Maintenance | Due Date | Last Done | Comments | + + + + + | Vaccine: | | 05/26/2012 | | | Dtap/Tdap/Td (1 - | 9 | | | | Tdap) | | | | + + + + + | Vaccine: Zoster (1 | | | | | of 2) | 8 | | | + + + + + | Vaccine: Influenza | | | | | (Season Ended) | 0 | | | + + + + + Results Not on filefrom Last 3 Months Insurance + +--------+ +--------+ +---------+--------+ | Payer | Benefi | Subscriber | Effect | Phone | Address | Type | | | t Plan | ID | stefan | | | | | | / | | Dates | | | | | | Group | | | | | | + +--------+ +--------+ +---------+--------+ | MEDICARE | MEDICA | [id number] | | [phone] | | Medica | | | RE | | 008-Pr | 5 | | re | | | PART A | | esent | | | | | | AND B | | | | | | + +--------+ +--------+ +---------+--------+ + +--------+ +--------+ + + | Guarantor Name | Accoun | Relation to | Date | Phone | Billing Address | | | t Type | Patient | of | | | | | | | | | | + +--------+ +--------+ + + | Demetrius Bowman | Person | Self [birth year] | [address] | | | al/Fam | | 1956 | [phone] | [place] [address] | | | [place]ice | | | 9 (Home) | | + +--------+ +--------+ + + Advance Directives + + + + + | Type | Date Recorded | Patient | Explanation | | | | Children'S Literature Professor | | + + + + + | Power of | | | | | Automobile Travel Club Counselor | | | | + + + + + | Advance | | | | | Directive | | | | + + + + +
--- OUTSIDE RECORDS SUMMARY | ~2019-08-16 | XMS | Encounter Summary ---
Demographics + + + | Address | [address] | | | [place] [address] | + + + | Home Phone | | + + + | Preferred Language | Unknown | + + + | Marital Status | | + + + | Mormon Affiliation | Unknown | + + + | Race | Unknown | + + + | Ethnic Group | Unknown | + + + Author + + + | Author | [facility] | | | and [place] | + + + | Organization | [facility] | | | and [place] [...] Team Providers + +------+ + | Care Construction Consultant Name | Role | Phone | + [...] | [address] [place] | [place], [place] [address] | | | | | [address] [place] | [place] | | | | | [address] | [address] | | | | | [phone] | | | +--------+ + + + [...]
--- OUTSIDE RECORDS SUMMARY | ~2019-08-16 | XMS | Encounter Summary ---
Demographics + + + | Address | [address] | | | [place] [address] | + + + | Home Phone | | + + + | Preferred Language | Unknown | + + + | Marital Status | | + + + | Taoist Affiliation | Unknown | + + + | Race | Unknown | + + + | Ethnic Group | Unknown | + + + Author + + + | Author | [facility] | | | and [place] | + + + | Organization | [facility] | | [...] Team Providers + +------+ + | Care Wood Hacker Name | Role | Phone | + [...] [place] | | | | | | [address] | | | | | | [phone] | | | +--------+ + + + [...]
--- OUTSIDE RECORDS SUMMARY | ~2019-08-16 | XMS | Encounter Summary ---
Demographics + + + | Address | [address] | | | [place] [address] | + + + | Home Phone | | + + + | Preferred Language | Unknown | + + + | Marital Status | | + + + | Yarsanism Affiliation | Unknown | + + + | Race | Unknown | + + + | Ethnic Group | Unknown | + + + Author + + + | Author | [facility] | | | and [place] | + + + | Organization | [facility] | | | and [...] Team Providers + +------+ + | Care Ground Crew Lines Person Name | Role | Phone | + [...] Closed | | Gastroenterol | Diagnoses | [place], | [place], | | | | ogy | Foreign | Glynn | Karyn, | | | | | body in anus | MD Omar | [address] | | | | | and rectum, | [address] | [place], [place] | | | | | sequela | St | [address] [place] | | | | | Procedures | [place], | [place], [place] | | | | | Office Visit | [place] [address] | [address] Phone: | | | | | | Phone: | [phone] | | | | | | [phone] | Fax: | | | | | | Fax: | [phone] | | | | | | [phone] | | +--------+--------+ + + + + [...] | [address] [place] | [place], [place] [address] | unspecified COPD | | | | [address] [place], [place] | [place], [place] | type (HCC) (Primary | | | | [address] | [address] | Dx); Hearing voices; | | | | [phone] | | Family history of | | [...] for a few hours. Date Last Reviewed: 02/24/201619991792-6564 The [employer]. [address] [place] [address]. All righ ts reserved. This information is not intended as a substitute for professional medical care. Always follow your healthcare professional's instructions. documented in this encounter Progress Notes Karyn uClp ARNP - 07/05/2016 11:25 AM PDTFormatting of [...] Final eGFR, External 08/17/2015 86 60 - 98427 Final WBC, External 08/17/2015 5.2 4.5 - [...] Final eGFR, External 08/18/2015 87 60 - 79552 Final WBC, External 08/18/2015 14.6* 4.5 - [...]
--- OUTSIDE RECORDS SUMMARY | ~2019-08-16 | XMS | Encounter Summary ---
Demographics + + + | Address | [address] | | | [place] [address] | + + + | Home Phone | | + + + | Preferred Language | Unknown | + + + | Marital Status | | + + + | Evangelical Affiliation | Unknown | + + + | Race | Unknown | + + + | Ethnic Group | Unknown | + + + Author + + + | Author | [facility] | | | and [place] | + + + | Organization | [facility] | | | and [place] [...] Team Providers + +------+ + | Care Lawn Mower Operator Name | Role | Phone | + +------+ + | Glynn Roberts MD | PCP | | + +------+ + Encounter Details +--------+ + + + + | Date | Type | Department | Care Team | Description | +--------+ + + + + | 07/05/ | Orders Only | [facility] [place] | [facility], | Special screening | | 2017 | | GASTROENTEROLOGY | [address] | for malignant | | | | [address] [place] | [place], [place] [address] | neoplasms, colon | | | | [address] [place], [place] | [place], [place] | (Primary Dx); Family | | | | [address] | [address] | history of colon | | | | [phone] | | cancer; Hearing | | | [...]
--- OUTSIDE RECORDS SUMMARY | ~2019-08-16 | XMS | Encounter Summary ---
Demographics + + + | Address | [address] | | | [place] [address] | + + + | Home Phone | | + + + | Preferred Language | Unknown | + + + | Marital Status | | + + + | Yazdanism Affiliation | Unknown | + + + | Race | Unknown | + + + | Ethnic Group | Unknown | + + + Author + + + | Author | [facility] | | | and [place] | + + + | Organization | [facility] | | | and [place] | [...] Team Providers + +------+ + | Care Brick Dropper Name | Role | Phone | + [...] | Telephone | [facility] [place] | [facility], | Procedure | | 2017 | | GASTROENTEROLOGY | [address] | | | | | [address] [place] | [place], [place] [address] | | | | | [address] [place], [place] | [place], [place] | | | | | [address] | [address] | | | | | [phone] | | | +--------+ + + + [...]
--- OUTSIDE RECORDS SUMMARY | ~2019-08-16 | XMS | Clinical Summary ---
Demographics + + + | Address | [address] | | | [place] [address] | + + + | Home Phone | | + + + | Preferred Language | Unknown | + + + | Marital Status | | + + + | Alevism Affiliation | Unknown | + + + | Race | Unknown | + + + | Ethnic Group | Unknown | + + + Author + + + | Author | [facility] | | | and [place] | + + + | Organization | [facility] | | | and [place] [...] Team Providers + +------+ + | Care Watch Adjuster Name | Role | Phone | + [...] +--------+ +---------+--------+ | MEDICARE | MEDICA | [id number] | | [phone] | | Medica | [...] | 1956 | [phone] | [place] [address] | | | [place] | | | 9 (Home) | | + +--------+ +--------+ + + Advance Directives + + + + + | Type | Date Recorded | Patient | Explanation | | | | Curb Builder | | + + + + + | Power of | | | | | Pricing Intern | | | | + + + + + | Advance | | | | | Directive | | | | + + + + +
--- OUTSIDE RECORDS SUMMARY | ~2019-08-16 | XMS | Encounter Summary ---
Demographics + + + | Address | [address] | | | [place] [address] | + + + | Home Phone | | + + + | Preferred Language | Unknown | + + + | Marital Status | | + + + | Adventist Affiliation | Unknown | + + + | Race | Unknown | + + + | Ethnic Group | Unknown | + + + Author + + + | Author | [facility] | | | and [place] | + + + | Organization | [facility] | | | and [...] Team Providers + +------+ + | Care Teacher Kindergarten Name | Role | Phone | + [...] | [address] [place] | [place], [place] [address] | | | | | [address] [place] [address] | [place] | | | | | [address] | [address] | | | | | [phone] | | | +--------+ + + + [...] +--------+ + + + | EXTERNAL LAB: [facility] | Routin | 08/18/2015 | | Results for this | | | e | | | procedure are in the | | | | | | results section. | + +--------+ + + + documented in this encounter Results External Lab: [facility] (08/18/2015) + + + + + + | Component | Value | Ref Range | Performed | Pathologist | | | | | At | Signature | + + + + + + | HGB, | 17.0 | 13.5 - 18 | EXTERNAL | | | External | | | LAB | | + + + + + + | HCT, | 62.0 (A) | 41 - 50 | EXTERNAL | | | External | | | LAB | | + + + + + + | PLT, | 189 | 140 - 440 | EXTERNAL | [...]
--- OUTSIDE RECORDS SUMMARY | ~2019-08-16 | XMS | Encounter Summary ---
Demographics + + + | Address | [address] | | | [place] [address] | + + + | Home Phone | | + + + | Preferred Language | Unknown | + + + | Marital Status | | + + + | Voodoo Affiliation | Unknown | + + + | Race | Unknown | + + + | Ethnic Group | Unknown | + + + Author + + + | Author | [facility] | | | and [place] | + + + | Organization | [facility] | | | and [place] [...] Team Providers + +------+ + | Care Production Manager Name | Role | Phone | [...] | [address] [place] | [place], [place] [address] | | | | | [address] [place] | [place] | | | | | [address] | [address] | | | | | [phone] | | | +--------+ + + + [...]
--- OUTSIDE RECORDS SUMMARY | ~2019-08-16 | XMS | Encounter Summary ---
Demographics + + + | Address | [address] | | | [place] [address] | + + + | Home Phone | | + + + | Preferred Language | Unknown | + + + | Marital Status | | + + + | Caodaism Affiliation | Unknown | + + + | Race | Unknown | + + + | Ethnic Group | Unknown | + + + Author + + + | Author | [facility] | | | and [place] | + + + | Organization | [facility] | | | and [...] Team Providers + +------+ + | Care Deputy Coroner Investigator Name | Role | Phone | + [...] | | | | | [address] | [place] | | | | | [place] | [address] | | | | | [address] | | | | | | [phone] | | | +--------+ + + + [...]
--- OUTSIDE RECORDS SUMMARY | ~2019-08-16 | XMS | Encounter Summary ---
Demographics + + + | Address | [address] | | | [place] [address] | + + + | Home Phone | | + + + | Preferred Language | Unknown | + + + | Marital Status | | + + + | Mosque Affiliation | Unknown | + + + | Race | Unknown | + + + | Ethnic Group | Unknown | + + + Author + + + | Author | [facility] | | | and [place] | + + + | Organization | [facility] | | [...] Team Providers + +------+ + | Care Monologist Name | Role | Phone | + +------+ + | Glynn Roberts MD | PCP | | + +------+ + Encounter Details +--------+ + + + + | Date | Type | Department | Care Team | Description | +--------+ + + + + | 07/05/ | Documentati | [facility] [place] | [facility], | | | 2017 | on | GASTROENTEROLOGY | [address] | | | | | [address] [place] | [place], [place] [address] | | | | | [address] [place] | [place] | | | | | [address] | [address] | | | | | [phone] | | | +--------+ + + + [...]
[~2019-08-16 00:40] MED LIST changes: +DOXYCYCLINE HY100 MG PO
[2019-08-16] MEDS ORDERED: DOXYCYCLINE HY100 MG PO (01:18)
== END 2019-08-16 01:34 | disposition home or self-care (01) ==
LOC: ED 00:40
DX: N48.29 Other inflammatory disorders of penis (principal); J44.9 Chronic obstructive pulmonary disease, unspecified; I10 Essential (primary) hypertension; F17.200 Nicotine dependence, unspecified, uncomplicated; Z88.5 Allergy status to narcotic agent; Z79.899 Other long term (current) drug therapy
CPT/HCPCS: 87070; 87077; 87186; 87205; 99282

== ENCOUNTER 2021-02-25 13:50 | Inpatient (IN) | payer MEDICARE, MEDICAID ==
[~2021-02-25] VITALS: Ht 162.6 cm; Wt 90.2 kg
[2021-02-25] MEDS ORDERED: ADVAIR 500-501 EACH INH (14:13)
[2021-02-25] MEDS ORDERED: LOSARTAN-HCTZ1 EAC2 PO (14:50)
[2021-02-25] MEDS ORDERED: METOPROLOL SUCC50 MG PO (14:50)
--- NOTE | 2021-02-25 17:55 | NUR ---
65 year old male patient admitted to ccu from ed via stretcher under dr. chu with dx of etoh withdrawal,COPD. PATIENT STATES HE HAS BEEN WITH INCREASED SOB OVER THE PAST 3 WEEKS AND N/V FOR PAST WEEK. LIPASE -453. MG+,1.4. UPON ADMIT PATIENT IS ABLE TO ANSWERE MOST QUESTIONS. IVF INFUSING. PLACED ON BEDPAN FEELS NEED TO HAVE BM. ADMISSION PROCESS STARTED.
--- NOTE | 2021-02-25 18:30 | NUR ---
MONITOR SHOWES SVT, HR 170. LOPRESSOR 5 MG IV GIVEN.
--- NOTE | 2021-02-25 19:07 | NUR ---
BANANA BAG INFUSING AT 250 ML/HR, LR BOLUS AT 999 TIMES ONE INFUSIN, MG RIDER INFUSING. PATIENT IS CALM AFTER VALIUM GIVEN. REPORT TO NEXT SHIFT.
--- NOTE | 2021-02-25 19:40 | NUR ---
CRITICAL LAB VALUE RECEIVED: LACTIC ACID 4.9, DR. EPSTEIN IN UNIT AND UPDATED. NO NEW ORDERS AT THIS TIME.
--- NOTE | 2021-02-25 20:30 | NUR ---
SHIFT REPORT RECEIVED FROM PRIYA COLINDRES. PT IS SLIGHTLY DROWSY, BUT IS ORIENTED, DENIES PAIN AT THIS TIME. CIWA 7. LUNGS DIM, WHEEZE NOTED IN LEFT UPPER LOBE, 2L VIA NC IN PLACE. PT REPORTS MILD SOB AT REST. HR REGULAR, RATE 105- 115. BOWEL TONES ACTIVE, ABDOMEN TENDER, MODERATELY DISTENDED, DENIES NAUSEA. IV SITES INTACT, FLUIDS INFUSING WNL. SKIN TRACY, CAP REFILL SLIGHTLY DELAYED IN BLE, PERIPHERAL PULSES STRONG. ENGINEERING OPERATOR FINISHED WITH ABDOMINAL US. PT DENIES NEEDS, CALL LIGHT WITHIN REACH.
--- NOTE | 2021-02-25 21:15 | NUR ---
BANANA BAG COMPLETED, IV FLUIDS SWITCHED TO D5LR @ 100ML/HR PER EMAR. PT REPORTS FEELING WARM, DECREASED ROOM TEMP. ORAL TEMP 98.3 AT THIS TIME. OFFERED PT A COOL CLOTH OR A PERSONAL FAN, BUT HE DECLINED AT THIS TIME. FRESH ICE WATER PROVIDED AND PT BOOSTED UP IN BED. DENIES FURTHER NEEDS, CALL LIGHT WITHIN REACH.
--- NOTE | 2021-02-25 22:15 | NUR ---
SCHEDULED MEDS GIVEN PER EMAR. PT DENIES NEEDS AT THIS TIME. BED ALARM REMAINS ON FOR SAFETY. CALL LIGHT WITHIN REACH.
--- NOTE | 2021-02-26 07:30 | NUR ---
LATE ENTRY ([facility] DOWN [id number]) 0000: ASSESSMENT COMPLETED AND UNCHANGED. 0100: PT UP TO [facility] WITH SBA, VOIDED 500ML. PT DYSPNEIC WITH ACTIVITY. PT REPORTS FEELING MORE ANXIOUS AND IS HAVING INCREASED WITHDRAWAL SYMPTOMS, CIWA 14, PRN ATIVAN GIVEN. 0215: IN TO GIVE SCHEDULED MEDS, PT DENIES NEEDS, CALL LIGHT WITHIN REACH, BED ALARM REMAINS ON FOR SAFETY. 0330: PT UP TO [facility] WITH SBA, CONTINUES TO HAVE DYSPNEA WITH ACTIVITY. PT VOIDED AND HAD SEMI LIQUID STOOL, TOTAL OUTPUT 600ML. PERICARE PROVIDED AND PT BACK TO BED. BED ALARM ON. 0400: ASSESSMENT COMPLETED. LUNGS HAVE MORE WHEEZES NOTED AT THIS TIME. CIWA 6. REMAINDER OF ASSESSMENT UNCHANGED. 0555: PT UP TO [facility] WITH SBA, HAD MIXED URINE AND SEMI-LIQUID STOOL FOR TOTAL OUTPUT OF 500ML. BED ALARM ON. IV SITES REMAIN INTACT AND INFUSING WNL. 0610: SCHEDULED MEDS GIVEN PER EMAR.
--- NOTE | 2021-02-26 08:00 | NUR ---
RECEIVED REPORT AT 0700, PT RESTING IN BED AT THIS TIME.
--- NOTE | 2021-02-26 09:00 | NUR ---
CIWA AN 8 AT THIS TIME. ALL LOBES HAVE WHEEZING PRESENT AND ARE TIGHT IN THE BASES. PT NOW ON RA AND DOING WELL WITH O2 SATS. RUQ AND LUQ ARE TENDER TO TOUCH. ABD SOUNDS PRESENT, FREDERICK. FEET HAVE SOME EDEMA PRESENT AND SO DO BOTH HANDS. WILL CONTINUE TO MONITOR.
--- NOTE | 2021-02-26 10:00 | NUR ---
PATIENT UP TO BSC. LINENS CHANGED.
--- NOTE | 2021-02-26 10:29 | NUR ---
PATIENT IS SITTING UP IN BED EATING CHICKEN BROTH. CALL LIGHT IN EASY REACH. BED ALARM ON FOR SAFETY
--- NOTE | 2021-02-26 10:45 | NUR ---
PT IN ROOM. WILL NEED TO START NEW IV SINCE ONE IV SITE WAS LEAKING. PT STATED THAT HE WAS DOING OK AT THIS TIME.
--- NOTE | 2021-02-26 11:41 | NUR ---
CIWA AT THIS TIME IS AN 8. PRN VALIUM TO BE GIVEN.
[2021-02-26] MEDS ORDERED: FUROSEMIDE20 MG PO (12:53)
[2021-02-26] MEDS ORDERED: NARCAN4 MG NAS (12:55)
--- NOTE | 2021-02-26 13:30 | NUR ---
PT STILL HAS SOME WHEEZING PRESENT. PT REMAINS ON ROOM AIR THOUGH. BP STILL SOMEWHAT ELEVATED. BILATERAL HAND EDEMA HAS INCREASED HOWEVER AND A SECOND IV SITE WILL HAVE TO BE STARTED VIA ULTRASOUND. OVERALL PT HAS NOT ESCALATED SO FAR WITH HIS ETOH WITHDRAWL. WILL CONTINUE TO MONITOR.
--- NOTE | 2021-02-26 13:40 | NUR ---
MED REC COMPLETED BY PHARMACY
--- NOTE | 2021-02-26 14:45 | NUR ---
Pt states he lives alone in an apartment with 12 steps. Daughter stays with him frequently and helps. Pt states he has a nebulizer and meds. He is disabled and uses food stamps. [place] assists him with his utilities. He denies any needs and plans on dc to home.
--- NOTE | 2021-02-26 15:30 | NUR ---
VISITOR IN ROOM.
--- NOTE | 2021-02-26 16:30 | NUR ---
ALL LOBES HAVE WHEEZING PRESENT. UPPER AIRWAY WHEEZING MOSTLY. PT REMAINS ON ROOM AIR. CIWA IS 11 AND PRN VALIUM WAS GIVEN. ELEVATED BP'S PRESENT ALSO. BILATERAL HAND EDEMA HAS INCRESED ONCE MORE SINCE NOON. PT NOW ALSO HAS VISULAL HALLUCINATIONS PRESENT. THESE CAME TO LIGHT AFTER VALIUM WAS GIVEN. WILL CONTINUE TO MONITOR.
--- NOTE | 2021-02-26 20:51 | NUR ---
SCHEDULED MEDS PROVIDED PER ORDER. PATIENT RESTING IN BED WITH EYES CLOSED. WAKES EASILY TO VOICE. PATIENT IS ALERT AND ORIENTED. CIWA 12, PATIENT REPORTS FEELING ANXIOUS, MILD HEADACHE AND SOME AUDITORY HALLUCINATIONS. SPECIFICALLY HIS IV PUMP REPEATING HIS THOUGHTS TO HIM WHILE HE IS TRYING TO REST. VS STABLE. PATIENT APPEARS CALM AND IS RESTING PEACEFULLY. ASSISTED TO POSITION FOR COMFORT AND ADJUSTED ROOM TEMP PER REQUEST. PATIENT DOES HAVE SOME UPPER AIRWAY WHEEZING. TOLERATING ROOM AIR. REPORTS FEELING THAT HIS BREATHING IS IMPROVED OVERALL. BED ALARM ACTIVE. CALL LIGHT IN REACH.
--- NOTE | 2021-02-26 21:30 | NUR ---
PATIENT IS RESTLESS IN BED TRYING TO GET COMFORTABLE. SCHEDULED MEDS PROVIDED. PRN VALIUM FOR CIWA >8. PATIENT REQUESTED FOOD, A JELLO WAS PROVIDED. PATIENT IS MUMBLING TO HIMSELF INBETWEEN ANSWERING QUESTIONS. UNABLE TO UNDERSTAND THIS MUMBLING. WHEN PATIENT SPEAKS TO STAFF IT IS CLEAR. PATIENT IS ORIENTED TO SELF AND SURROUNDINGS.
--- NOTE | 2021-02-26 23:00 | NUR ---
PATIENT VOIDED IN THE URNAL BUT WANTED TO USE THE BATHROOM TO HAVE A BM. ASSISTED PATIENT UP TO THE BATHROOM. PATIENT IS SLIGHTLY INSTEADY ON HIS FEET BUT ABLE TO AMBULATE WITH SBA. PATIENT REPORTED HAVING A SMALL LOOSE BM. UPON RETURN TO BED WITH MODERATELY SOB. O2 SATS >90% ON ROOM AIR. DENIED NEED FOR NEB TREATMENT. ABLE TO REST AFTER A FEW MINS BACK IN BED. CALL LIGHT IN REACH.
--- NOTE | 2021-02-26 23:24 | NUR ---
CARE OF PATIENT TRANSITIONED TO THIS RN.
--- NOTE | 2021-02-27 | NUR ---
ASSESSMENT COMPLETED. PT SLEEPING, WOKE EASILY WHEN I ENTERED ROOM. CIWA 14, PRN ATIVAN GIVEN. PT DENIES PAIN. LUNGS DIM WITH WHEEZE NOTED IN RIGHT UPPER LOBE, REMAINS ON ROOM AIR. HR REGULAR, RATE 95-110'S. BOWEL TONES ACTIVE. SKIN GROSSLY INTACT. IV SITES INTACT AND PATENT. BED ALARM SET FOR SAFETY. PT DENIES FURTHER NEEDS, CALL LIGHT WITHIN REACH.
--- NOTE | 2021-02-27 01:34 | NUR ---
BED ALARM SET OFF. PT UP TO BATHROOM, INDEPENDENT EXCEPT FOR CORD MANAGEMENT. PT VOIDED 600ML CONCENTRATED URINE AND HAD SMALL AMOUNT OF SEMI LIQUID STOOL. PT PROVIDED OWN PERICARE AND RETURNED TO BED. PT PROVIDED WITH JELLO, SODA, AND FRESH ICE WATER PER REQUEST. DENIES FURTHER NEEDS, CALL LIGHT WITHIN REACH. BED ALARM ON FOR SAFETY.
--- NOTE | 2021-02-27 02:16 | NUR ---
IN TO GIVE SCHEDULED MEDS. PT HAS REPOSITIONED ONTO LEFT SIDE. BED ALARM REMAINS ON FOR SAFETY. PT STATES HE IS HUNGRY AND IS WONDERING WHEN HE WILL GET TO EAT MORE THAN CLEAR LIQUIDS. I TOLD HIM THAT WE CAN ASK THE DOCTOR TODAY AND PT WAS HAPPY WITH THAT. PT ALSO ASKED IF HE WAS ALLOWED TO LEAVE, I INFORMED HIM THAT HE IS NOT BEING HELD HERE AND HE IS FREE TO LEAVE. PT DOES NOT WANT TO LEAVE AMA AT THIS TIME, HE JUST WANTED TO BE SURE THAT HE WASN'T BEING HELD HERE. PT DENIES FURTHER NEEDS AT THIS TIME, CALL LIGHT WITHIN REACH.
--- NOTE | 2021-02-27 04:05 | NUR ---
PT SLEEPING AT THIS TIME, RESPIRATIONS EVEN AND UNLABORED, NO APPARENT DISTRESS. R.T. IN TO GIVE BLOW-BY BREATHING TREATMENT. ASSESSMENT DEFERRED AT THIS TIME TO ALLOW FOR REST. BED ALARM REMAINS ON.
--- NOTE | 2021-02-27 05:15 | NUR ---
0455: WHILE THIS RN WAS OFF UNIT, BED ALARM WENT OFF AND NORIS RN WENT TO HELP PT. HAD PULLED OFF GOWN AND CARDIAC LEADS. SBA TO BATHROOM TO VOID. PT THEN MEDICATED WITH PRN VALIUM FOR CIWA OF 12. THIS RN IN ROOM AT THIS TIME. PT STATES THAT HE IS FEELING UPSET AND HUNGRY. HE REPORTS THAT HE IS TIRED OF BEING MONITORED AND FEELS LIKE HE IS BEING HELD HOSTAGE. I REMINDED PT THAT HE IS NOT BEING HELD HERE AND THAT HE IS FREE TO GO, BUT ADVISED HIM AGAINST LEAVING AMA FOR HIS SAFETY. PT AGREEABLE TO STAYING FOR NOW, BUT REFUSES TO WEAR CARDIAC LEADS/PULSE OXIMETER. PT ALSO REMOVED IV FROM LEFT FOREARM, CATHETER INTACT, BANDAGE PLACED. PT ALLOWED ME TO DO AN ASSESSMENT (SEE DOCUMENTATION) AND GET HIS TEMPERATURE. PT STATES HE IS GOING TO TAKE A NAP NOW. BED ALARM REMAINS ON FOR SAFETY.
--- NOTE | 2021-02-27 06:56 | NUR ---
0615: LAB WENT IN TO DRAW LABS, PT BECAME VERY AGITATED AND WANTED TO GET DRESSED AND LEAVE. GOT UP AND PUT CLOTHES ON, RN CRITICAL POWER INSTALL TECHNICIAN CALLED FOR ASSISTANCE AND DR. EPSTEIN CALLED. ORDERS RECEIVED FOR ONE TIME DOSE OF VALIUM AND IF AFTER 15 MINUTES THAT HASN'T WORKED THEN TO GIVE PHENOBARBITAL. SECURITY TO ROOM AT THIS TIME AND VALIUM GIVEN. ABOUT 10 MINUTES AFTER ADMINISTRATION PT PUT HIMSELF BACK IN BED AND SLEPT. 0650: PT AGAIN OUT OF BED AND AGITATED, SWEARING AND THREATENING STAFF. SECURITY CALLED AND PHENOBARBITAL GIVEN. PT NOW IN BED, SECURITY REMAINS AT BEDSIDE. UNABLE TO COLLECT MORNING LABS. UNABLE TO PLACE PT ON ANY MONITORS. BED ALARM ON FOR SAFETY.
--- NOTE | 2021-02-27 07:20 | NUR ---
DR. EPSTEIN CALLED TO ASK FOR AN UPDATE. INFORMED HIM OF RECENT PT BEHAVIOR AND MEDICATION ADMINISTRATION. ORDERS RECEIVED FOR AN ADDITIONAL DOSE OF 60MG IM PHENOBARBITAL. [employer] LAB[employer]ER AMY IN UNIT AT THIS TIME, APPARENTLY PT HAD CALLED POLICE DEPARTMENT.
--- NOTE | 2021-02-27 07:33 | NUR ---
Report received from assistant shift supervisor RN. patient trying to walk out. patient called [employer] police and an officer is here talking to him now.
--- NOTE | 2021-02-27 08:09 | NUR ---
DIFFICULT TO FLUSH AND SWELLING IN THE AREA WHEN FLUSHING.
--- NOTE | 2021-02-27 08:22 | NUR ---
ANDREW IYER RN HERE TO EVALUATE IV AND POSSIBLY TRY TO PLACE ANOTHER WITH ULTRASOUND. SHAKA, PATIENT DAUGHTER HERE, WAS ARGUING WITH PATIENT ABOUT HOW LONG HE HAS BEEN HERE. SHAKA STATES WILL WAIT IN THE WAITING ROOM UNTIL MD HERE.
--- NOTE | 2021-02-27 08:29 | NUR ---
REFUSING NEB TREATMENT FROM RT, REFUSING TO HAVE ANOTHER IV PLACED.
--- NOTE | 2021-02-27 09:41 | NUR ---
AT 0910 PATIENT SIGNED AMA FORM, WAS IN ROOM EXPLAINING THE RISKS, PATIENT VERBALIZED UNDERSTANDING AND STILL REQUESTS TO LEAVE AND GO HOME. PATIENT HAS NOTIFIED FRIENDS TO COME GET HIM AND THEY STATE THEY ARE ON THE WAY. ALSO, [employer] CALLED AND COMING. PATIENT TO FRONT LOBBY ON WHEELCHAIR AND SECURITY WITH PATIENT UNTIL [employer] OR FRIENDS GET HERE. PATIENT RECEIVED PRESCRIPTIONS FROM DR EPSTEIN AND INFORMED TO COME BACK TO THE ED IF SYMPTOMS WORSEN OR IF WOULD LIKE TREATMENT.
--- NOTE | 2021-02-27 09:49 | EKG ---
[facility] [address] [facility] [place] [address] Signed Sinus tachycardia Nonspecific ST and T wave abnormality Abnormal ECG When compared with ECG of 12-JUN-2018 17:50, ST now depressed in Anterior leads T wave inversion now evident in Anterior leads Confirmed by LORRAINE EPSTEIN MD ([id number]) on 02/27/2021 9:49:40 AM Electronically Signed By: LORRAINE EPSTEIN MD 02/27/21 0949 PATIENT NAME: JORGE EPPERSON Electrocardiogram DATE OF : 59 PHYSICIAN: LORRAINE EPSTEIN MD REPORT #: [id number] REPORT IS CONFIDENTIAL AND NOT TO BE RELEASED WITHOUT AUTHORIZATION
== END 2021-02-27 09:10 | disposition left against medical advice (07) | DRG 894 ==
LOC: ED 13:50 → CCU 17:22
PROVIDERS: ADMIT Internal Medicine; ATTEND Internal Medicine
DX: F10.231 Alcohol dependence with withdrawal delirium (principal); J44.1 Chronic obstructive pulmonary disease with (acute) exacerbation; E87.1 Hypo-osmolality and hyponatremia; Z20.822 Contact with and (suspected) exposure to COVID-19; E83.42 Hypomagnesemia; R73.9 Hyperglycemia, unspecified; K80.20 Calculus of gallbladder without cholecystitis without obstruction; K70.10 Alcoholic hepatitis without ascites; K29.20 Alcoholic gastritis without bleeding; I10 Essential (primary) hypertension; F17.210 Nicotine dependence, cigarettes, uncomplicated; Z79.899 Other long term (current) drug therapy; Z88.5 Allergy status to narcotic agent; Y90.6 Blood alcohol level of 120-199 mg/100 ml
CPT/HCPCS: 36600; 71045; 76705; 80053; 82803; 83036; 83605; 83690; 83735; 83880; 84484; 85025; 85610; 87040; 93005; 93010; 94640; 96365; 96366; 96367; 96375; 99285-25; C9113; C9803; G0480; J0456; J0696; J1100; J1650; J2060; J2560; J2930; J3360; J3411; J3475; J7030; J7060; J7121; U0003